=== PATIENT | female | born 1950 | race Caucasian/White ===

== ENCOUNTER 2021-08-07 07:07 | Day surgery (SDC) | payer MEDICARE ==
[~2021-08-07] VITALS: Ht 157.5 cm; Wt 81.8 kg
[~2021-08-07 07:07] MED LIST: SODIUM CHLORIDE 0.9% 1,000 ML IV ONE
[2021-08-07] MEDS ORDERED: SODIUM CHLORIDE 0.9% 1,000 ML ONE (08:09)
[2021-08-07] MEDS ORDERED: ASPI-1450 PO (08:22)
[2021-08-07] MEDS ORDERED: METF-1211 PO (08:22)
[2021-08-07] MEDS ORDERED: ATOR40TA28 PO (08:22)
[2021-08-07] MEDS ORDERED: OMEP20 PO (08:22)
[2021-08-07] MEDS ORDERED: SACU1TAB PO (08:22)
[2021-08-07] MEDS ORDERED: CARV25 PO (08:22)
[2021-08-07] MEDS ORDERED: TICA90TA PO (08:22)
[2021-08-07] MEDS ORDERED: DiphenhydrAMINE HCL 50 MG/ML VIAL ONE (08:36)
[2021-08-07] MEDS ORDERED: DIAZEPAM 5 MG TABLET ONE (08:36)
[2021-08-07] MEDS ORDERED: DiphenhydrAMINE HCL 50 MG CAPSULE ONE (08:37)
[2021-08-07 08:41] LABS: GLUCOMETER DEV NAME(LOC) SDS.; GLUCOSE,POINT OF CARE 98 MG/DL (70-110)
[2021-08-07] MEDS ORDERED: DIAZEPAM 5 MG TABLET PO ONE (09:00)
[2021-08-07] MEDS ORDERED: ASPIRIN 81 MG CHEWABLE TABLET PO ONE (09:00)
[2021-08-07] MEDS ORDERED: DiphenhydrAMINE HCL 50 MG CAPSULE PO ONE (09:00)
[2021-08-07] MEDS ORDERED: IOHEXOL 300 MG/ML 100 ML VIAL ONE (10:18)
[2021-08-07] MEDS ORDERED: LIDOCAINE/PF 1% 30 ML VIAL ONE (10:18)
[2021-08-07] MEDS ORDERED: SODIUM BICARBONATE 50 MEQ/50 ML VIAL ONE (10:18)
[2021-08-07] MEDS ORDERED: IOHEXOL 300 MG/ML 150 ML VIAL ONE (10:18)
[2021-08-07] MEDS ORDERED: IOHEXOL 300 MG/ML 50 ML VIAL ONE (10:18)
[2021-08-07] MEDS ORDERED: HEPARIN SODIUM 1000 UNITS/NS 1,000 ML ONE (10:19)
[2021-08-07] MEDS ORDERED: FentaNYL CITRATE PF 100 MCG/2 ML VIAL ONE (10:25)
[2021-08-07] MEDS ORDERED: MIDAZOLAM HCL 2 MG/2 ML VIAL ONE (10:26)
[2021-08-07] MEDS ORDERED: LIDOCAINE 1% 30 ML/SOD BICARB 8.4% 4 ML SQ ONE (10:30)
[2021-08-07] MEDS ORDERED: HEPARIN SODIUM 1000 UNITS/NS 1,000 ML IARTER ONE (10:30)
[2021-08-07] MEDS ORDERED: IOHEXOL 300 MG/ML 150 ML VIAL ICOR ONE (10:30)
[2021-08-07 10:34] VITALS: BP 177/77
[2021-08-07] MEDS ORDERED: MIDAZOLAM HCL 2 MG/2 ML VIAL IVP ONE (11:00)
[2021-08-07] MEDS ORDERED: FentaNYL CITRATE PF 100 MCG/2 ML VIAL IVP ONE (11:00)
[2021-08-07] MEDS ORDERED: HEPARIN SODIUM,PORCINE 5,000 UNITS/ML VIAL IVP ONE (11:15)
[2021-08-07] MEDS ORDERED: HEPARIN SODIUM 1000 UNITS/NS 500 ML ONE (11:20)
[2021-08-07] MEDS ORDERED: NITROGLYCERIN 50 MG/D5% WATER 250 ML ONE (11:22)
[2021-08-07] MEDS ORDERED: NITROGLYCERIN/D5W 50 MG/250 ML IV BOTTLE ICOR ONE (11:30)
[2021-08-07] MEDS ORDERED: TICAGRELOR 90 MG TABLET ONE (11:33)
[2021-08-07] MEDS ORDERED: TICAGRELOR 90 MG TABLET PO ONE (11:45)
[2021-08-07 11:48] VITALS: BP 173/82
[2021-08-07] MEDS ORDERED: ACETAMINOPHEN 325 MG TABLET ONE (14:49)
[2021-08-07] MEDS ORDERED: ACETAMINOPHEN 325 MG TABLET PO ONE (15:00)
== END 2021-08-07 16:00 | disposition home or self-care (01) ==
LOC: CATHLAB 07:07
PROVIDERS: ATTEND Internal Medicine Interventional Cardiology
DX: I25.110 Atherosclerotic heart disease of native coronary artery with unstable angina pectoris (principal); I10 Essential (primary) hypertension; I73.89 Other specified peripheral vascular diseases; E78.5 Hyperlipidemia, unspecified; E11.9 Type 2 diabetes mellitus without complications; Z79.84 Long term (current) use of oral hypoglycemic drugs; Z82.49 Family history of ischemic heart disease and other diseases of the circulatory system; Z80.8 Family history of malignant neoplasm of other organs or systems; Z79.899 Other long term (current) drug therapy; Z90.49 Acquired absence of other specified parts of digestive tract; Z95.5 Presence of coronary angioplasty implant and graft
CPT/HCPCS: 82962; 92978; 93005; 93454; 99152; 99153; C1753; C1757; C1760; C1874; C1887; C9600; J1644; J2250; J3010; J3490 ×3; J7030; Q9967 ×3; 75960; 92920; 92928; J1200